=== PATIENT | male | born 1975 | race Caucasian/White ===

== ENCOUNTER 2018-05-08 08:01 | Day surgery (SDC) ==
[2018-05-08 09:26] VITALS: TEMP 98.6
[2018-05-08] MEDS ORDERED: SUBLIMAZE ONE (10:07)
[2018-05-08] MEDS ORDERED: VERSED ONE (10:07)
[2018-05-08] MEDS ORDERED: LIDOCAINE 1% 2ML (SURGERY ONLY) INJ STA (10:07)
[2018-05-08] MEDS ORDERED: DIPRIVAN 20 ML VIAL IVP ONE (10:07)
[2018-05-08] MEDS ORDERED: LIDOCAINE 1%-EPI 1:100,000 10 ML (SURGERY) INJ ONE ×3 (10:15→13:30)
[2018-05-08] MEDS ORDERED: POLYSPORIN 0.9 GM PACKET TP PRN (12:10)
[2018-05-08 15:53] VITALS: BP 123/56
--- NOTE | 2018-05-11 14:00 | OP ---
PREOPERATIVE DIAGNOSIS: ORAL PAPILLOMA POSTOPERATIVE DIAGNOSIS: ORAL PAPILLOMA OPERATION: EXCISION OF BILATERAL ORAL PAPILLOMA PROCEDURE: The patient was taken to surgery, placed on the table and general anesthesia was administered. 1% Xylocaine and 1:100,000 Epinephrine was injected in both side of his oral mucosa. Using a sharp dissection the oral papilloma was removed from his mouth as well as the edge of his lip. Bleeding was controlled with 4-0 Chromic sutures and then the oral mucosa was brought together to his lip using interrupted 5-0 Nylon sutures. Attention was then turned from the right side to the left side and again the same technique was used and again removing approximately 1.5.x0.5cm papilloma from the oral mucosa essentially the same size on the right side. Bleeding was controlled with 4-0 Chromic sutures and then the oral mucosa was brought to his lip to cover up any chance of getting contractures after the skin was again brought together with 5- 0 Nylon sutures. The patient was then taken back to the recovery room in satisfactory condition. NOEL
== END 2018-05-08 11:30 | disposition home or self-care (01) ==
LOC: SURG 08:01
PROVIDERS: ATTEND Otolaryngology
DX: K13.70 Unspecified lesions of oral mucosa (principal); D10.39 Benign neoplasm of other parts of mouth
CPT/HCPCS: 40808; 40812